=== PATIENT | female | born 1935 | race Caucasian/White ===

== ENCOUNTER 2022-07-31 20:31 | Emergency (ER) | payer MEDICARE, BC ==
[~2022-07-31] VITALS: Ht 157.5 cm; Wt 64.9 kg
[2022-07-31] MEDS ORDERED: OXYCODONE-ACET1 EAC1 PO (21:04)
[2022-07-31] MEDS ORDERED: OMEPRAZOLE20 MG PO (21:05)
[2022-07-31] MEDS ORDERED: METHOTREXATE2.5 MG PO (21:05)
[2022-07-31] MEDS ORDERED: MEMANTINE HCL10 MG PO (21:06)
[2022-07-31] MEDS ORDERED: GABAPENTIN100 MG PO (21:06)
[2022-07-31] MEDS ORDERED: FOLIC ACID1 MG PO (21:07)
[2022-07-31] MEDS ORDERED: METFORMIN HCL1000 M1 PO (21:07)
[2022-07-31] MEDS ORDERED: CYMBALTA60 MG PO (21:07)
[2022-07-31] MEDS ORDERED: LEVOTHYROXINE100 MC2 PO (21:08)
[2022-07-31] MEDS ORDERED: METHYLPREDNISOLO4 MG PO (23:55)
--- NOTE | 2022-08-01 07:47 | EKG ---
[facility] [address] [place] [address] Signed Atrial-sensed ventricular-paced rhythm Abnormal ECG No previous ECGs available Confirmed by ESPINOZA ENCARNACION MD ([id number] on 08/01/2022 7:47:13 AM Electronically Signed By: ESPINOZA ENCARNACION MD 08/01/22 0747 PATIENT NAME: NELIDA THORNTON Electrocardiogram DATE OF : [birth year] PHYSICIAN: ESPINOZA ENCARNACION MD REPORT #: [id number] REPORT IS CONFIDENTIAL AND NOT TO BE RELEASED WITHOUT AUTHORIZATION
== END 2022-08-01 00:17 | disposition home or self-care (01) ==
LOC: ED 20:31
DX: J20.5 Acute bronchitis due to respiratory syncytial virus (principal); K21.9 Gastro-esophageal reflux disease without esophagitis; E11.9 Type 2 diabetes mellitus without complications; E03.9 Hypothyroidism, unspecified; Z20.822 Contact with and (suspected) exposure to COVID-19; Z95.0 Presence of cardiac pacemaker; Z79.899 Other long term (current) drug therapy; Z79.84 Long term (current) use of oral hypoglycemic drugs
CPT/HCPCS: 36415; 71045; 80053; 83880; 84484; 85025; 87502; 93005; 93010; 99284-25; U0003

== ENCOUNTER 2022-11-07 13:24 | Emergency (ER) | payer MEDICARE, BC ==
[~2022-11-07] VITALS: Ht 157.5 cm; Wt 64.9 kg
[~2022-11-07 13:24] MED LIST: CYMBALTA60 MG PO; FOLIC ACID1 MG PO; GABAPENTIN100 MG PO; LEVOTHYROXINE100 MC2 PO; MEMANTINE HCL10 MG PO; METFORMIN HCL1000 M1 PO; METHOTREXATE2.5 MG PO; METHYLPREDNISOLO4 MG PO; OMEPRAZOLE20 MG PO; OXYCODONE-ACET1 EAC1 PO
--- OUTSIDE RECORDS SUMMARY | 2022-11-07 13:26 | XMS ---
PreManage Notification: NELIDA THORNTON Security Motion Picture Actor Events No recent Security Events currently on file CRITERIA MET - [facility] CARE PROVIDERS There are no care providers on record at this time. Camron has no Care Guidelines for this patient. [facility] VISIT COUNT (12 MO.) 2 [facility]EE[facility] TOTAL 2 NOTE: Visits indicate total known visits. ED/C VISIT TRACKING (12 MO.) 11/07/2022 13:25 [facility] [place] TYPE: Emergency COMPLAINT: - SHORTNESS OF BREATH 07/31/2022 20:[address] 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
[2022-11-07] MEDS ORDERED: CEFDINIR300 MG PO (16:30)
[2022-11-07 16:48] VITALS: BP 128/88
== END 2022-11-07 16:48 | disposition home or self-care (01) ==
LOC: ED 13:24
DX: N39.0 Urinary tract infection, site not specified (principal); R18.8 Other ascites; J90 Pleural effusion, not elsewhere classified; N28.9 Disorder of kidney and ureter, unspecified; K21.9 Gastro-esophageal reflux disease without esophagitis; E11.9 Type 2 diabetes mellitus without complications; E03.9 Hypothyroidism, unspecified; M19.90 Unspecified osteoarthritis, unspecified site; Z79.899 Other long term (current) drug therapy; Z79.84 Long term (current) use of oral hypoglycemic drugs
CPT/HCPCS: 36415; 74177; 80053; 81001; 83690; 85025; 99284-25; Q9967